=== PATIENT | female | born 1995 | race Caucasian/White ===

== ENCOUNTER 2017-12-07 11:37 | Emergency (ER) | payer OTHER ==
[~2017-12-07] VITALS: Ht 172.7 cm; Wt 72.0 kg
[2017-12-07] MEDS ORDERED: ULTRAM50 MG PO (13:38)
[2017-12-07 13:59] VITALS: BP 120/73
== END 2017-12-07 14:00 | disposition home or self-care (01) ==
LOC: EXP 11:37 → EME 11:37 → EXP 14:00
PROC: 2W3JX1Z Immobilization of Right Finger using Splint (ICD-10-PCS; principal; 2017-12-07)
DX: S62.636A Displaced fracture of distal phalanx of right little finger, initial encounter for closed fracture (principal); Y09 Assault by unspecified means; G89.29 Other chronic pain; F17.200 Nicotine dependence, unspecified, uncomplicated
CPT/HCPCS: 73130; 99281; 99283